=== PATIENT | female | born 1955 | race Caucasian/White ===

== ENCOUNTER → 2020-06-26 | Outpatient (REF) | payer BC | LOC: M LAB 22:02 | PROVIDERS: ATTEND Physician Assistant Medical | DX: Z11.52 Encounter for screening for COVID-19 (principal) ==

== ENCOUNTER → 2020-08-13 | Outpatient (REF) | payer BC | LOC: M LAB REF 21:40 | PROVIDERS: ATTEND Physician Assistant Medical | DX: Z20.828 Contact with and (suspected) exposure to other viral communicable diseases (principal) ==

== ENCOUNTER → 2021-07-23 | Outpatient (CLI) | payer BC | LOC: M RAD 08:14 | PROVIDERS: ATTEND Family Medicine | DX: R19.01 Right upper quadrant abdominal swelling, mass and lump (principal); I10 Essential (primary) hypertension; R53.83 Other fatigue; E03.9 Hypothyroidism, unspecified; K76.0 Fatty (change of) liver, not elsewhere classified ==

== ENCOUNTER → 2021-08-20 | Outpatient (CLI) | payer BC ==
[~2021-08-20] MED LIST: GASTROGRAFIN SOLUTION 30ML (Q9963) As Ordered ONE; ISOVUE-370 76% 100ML VIAL As Ordered ONE
== END ==
LOC: M RAD 12:21
PROVIDERS: ATTEND Family Medicine
DX: R19.01 Right upper quadrant abdominal swelling, mass and lump (principal); K76.0 Fatty (change of) liver, not elsewhere classified; K57.30 Diverticulosis of large intestine without perforation or abscess without bleeding
CPT/HCPCS: 74177; Q9963; Q9967

== ENCOUNTER 2022-02-06 07:48 | Emergency (ER) | payer BC ==
[~2022-02-06] VITALS: Ht 175.3 cm; Wt 109.1 kg
[2022-02-06] MEDS ORDERED: NITROGLYCERIN 0.4 MG SUBL TABLET SL PRN (08:20)
[2022-02-06] MEDS ORDERED: ASPIRIN 81 MG CHEW TABLET PO ONE (08:20)
[2022-02-06 08:33] LABS: BASO % 0.5 % (0.0-1.0); EOS # 0.3 10^3/uL (0.0-0.5); HEMATOCRIT 41.8 % (36.0-47.0); HEMOGLOBIN 14.3 g/dl (12.0-15.5); LYMPH % 26.3 % (24.0-44.0); MEAN CORPUSCULAR HEMOGLOBIN 32.1 pg (27.0-33.0); MEAN CORPUSCULAR HGB CONC 34.2 g/dl (32.0-36.5); MEAN CORPUSCULAR VOLUME 93.7 fl (80.0-96.0); MONO # 0.5 10^3/uL (0.0-0.8); MONO % 6.9 % (2.0-8.0); NEUTROPHILS # 4.7 10^3/uL (1.5-8.5); PLATELET COUNT, AUTOMATED 213 10^3/uL (150-450); RED BLOOD COUNT 4.46 10^6/uL (4.00-5.40); WHITE BLOOD COUNT 7.5 10^3/uL (4.0-10.0)
[2022-02-06 08:37] VITALS: BP 158/82
[2022-02-06 08:44] LABS: INR 0.95; PARTIAL THROMBOPLASTIN TIME 26.7 SECONDS (25.9-37.0)
[2022-02-06 08:47] LABS: D-DIMER QUANT 438.19 ng/ml (<500)
[2022-02-06] MEDS ORDERED: TOPR50TA PO (08:47)
[2022-02-06 09:03] LABS: CK-MB VALUE MASS < 1.0 NG/ML (<3.6); CPK CREATINE PHOSPHOKINASE 73 U/L (26-192); MB/CK RELATIVE INDEX 1.37 (< OR =4)
[2022-02-06 09:26] LABS: ALBUMIN 3.5 GM/DL (3.2-5.2); ALT/SGPT 24 U/L (12-78); BILIRUBIN,DIRECT 0.3 MG/DL (0.0-0.2); BILIRUBIN,TOTAL 0.6 MG/DL (0.2-1.0); BLOOD UREA NITROGEN 9 MG/DL (7-18); CALCIUM LEVEL 8.7 MG/DL (8.8-10.2); CARBON DIOXIDE LEVEL 24 MEQ/L (21-32); CHLORIDE LEVEL 107 MEQ/L (98-107); CREATININE FOR GFR 0.68 MG/DL (0.55-1.30); FREE T4 0.95 NG/DL (0.76-1.46); GLOMERULAR FILTRATION RATE > 60.0 (>45); GLUCOSE, FASTING 97 MG/DL (70-100); LIPASE 78 U/L (73-393); POTASSIUM SERUM 4.1 MEQ/L (3.5-5.1); SODIUM LEVEL 137 MEQ/L (136-145); TOTAL PROTEIN 6.6 GM/DL (6.4-8.2)
[2022-02-06 10:43] LABS: CK-MB VALUE MASS < 1.0 NG/ML (<3.6); CPK CREATINE PHOSPHOKINASE 65 U/L (26-192); MB/CK RELATIVE INDEX 1.54 (< OR =4)
[2022-02-06 12:46] VITALS: BP 157/69
== END 2022-02-06 13:11 | disposition home or self-care (01) ==
LOC: M ED 07:48
DX: R07.9 Chest pain, unspecified (principal); R00.1 Bradycardia, unspecified; I10 Essential (primary) hypertension; Z87.891 Personal history of nicotine dependence; Z82.49 Family history of ischemic heart disease and other diseases of the circulatory system

== ENCOUNTER → 2022-07-02 | Outpatient (CLI) | payer BC ==
[~2022-07-02] MED LIST changes: +APPL300T4 PO; -GASTROGRAFIN SOLUTION 30ML (Q9963) As Ordered ONE; +GNP250TA9 PO; -ISOVUE-370 76% 100ML VIAL As Ordered ONE; +TOPR50TA PO; +TUME1CAP PO
== END ==
LOC: M LABSMTC 09:09
PROVIDERS: ATTEND Anesthesiology
DX: Z01.812 Encounter for preprocedural laboratory examination (principal); Z20.822 Contact with and (suspected) exposure to COVID-19

== ENCOUNTER 2022-07-07 07:17 | Day surgery (SDC) | payer BC ==
[~2022-07-07] VITALS: Ht 172.7 cm; Wt 107.9 kg
[~2022-07-07 07:17] MED LIST changes: +NS 1,000 ML IV ONE
[2022-07-07] MEDS ORDERED: fentaNYL 100 MCG/2 ML INJECTION As Ordered ONE (07:19)
[2022-07-07] MEDS ORDERED: propofoL 500 MG/50 ML VIAL As Ordered ONE (07:19)
[2022-07-07] MEDS ORDERED: LIDOCAINE 2% 100MG/5ML SDV (FOR ANES.) As Ordered ONE (07:19)
[2022-07-07 09:00] VITALS: BP 118/66
== END 2022-07-07 09:08 | disposition home or self-care (01) ==
LOC: M OPP 07:17
PROVIDERS: ATTEND Internal Medicine Gastroenterology
DX: Z12.11 Encounter for screening for malignant neoplasm of colon (principal); K57.30 Diverticulosis of large intestine without perforation or abscess without bleeding; K64.0 First degree hemorrhoids; K29.60 Other gastritis without bleeding; K31.89 Other diseases of stomach and duodenum; K44.9 Diaphragmatic hernia without obstruction or gangrene; Z79.899 Other long term (current) drug therapy; I10 Essential (primary) hypertension; G47.33 Obstructive sleep apnea (adult) (pediatric); M17.9 Osteoarthritis of knee, unspecified; Z87.891 Personal history of nicotine dependence; Z90.49 Acquired absence of other specified parts of digestive tract

== ENCOUNTER → 2023-01-28 | Outpatient (CLI) | payer MEDICARE ==
[~2023-01-28] MED LIST changes: -NS 1,000 ML IV ONE
== END ==
LOC: M PLAIMG 13:00
PROVIDERS: ATTEND Physician Assistant
DX: S93.601A Unspecified sprain of right foot, initial encounter (principal); Y93.9 Activity, unspecified; Y92.9 Unspecified place or not applicable

== ENCOUNTER → 2024-12-23 | Outpatient (CLI) | payer MEDICARE ==
[~2024-12-23] MED LIST changes: +AMOX875T2 PO
[2024-12-23 09:30] LABS: ESTIMATED AVERAGE GLUCOSE 94.0 MG/DL (60-110)
[2024-12-23 09:32] LABS: PLATELET COUNT, AUTOMATED 257 10^3/uL (150-450)
[2024-12-23 10:18] LABS: IRON (FE) 122 UG/DL (50-170)
[2024-12-23 10:19] LABS: ALT/SGPT 22 U/L (7.0-40); AST/SGOT 22 U/L (<34); CALCIUM LEVEL 9.0 MG/DL (8.3-10.6); CARBON DIOXIDE LEVEL 28 MMOL/L (20-31); CHLORIDE LEVEL 107 MMOL/L (98-107); CHOLESTEROL LEVEL 200 MG/DL (<200); CHOLESTEROL RISK RATIO 4.49 (<5); CREATININE FOR GFR 0.62 MG/DL (0.55-1.30); GLOMERULAR FILTRATION RATE > 90.0 (>45); LDL CHOLESTEROL 121.5 MG/DL (<100); NON-HDL-C 155.5 MG/DL; PERCENT SATURATION 38.5 % (13.2-45.0); POTASSIUM SERUM 4.5 MMOL/L (3.5-5.1); SODIUM LEVEL 148 MMOL/L (136-145); TOTAL 25(OH) VITAMIN D 51.1 NG/ML (20.0-100.0); TRIGLYCERIDES LEVEL 170 MG/DL (<150)
== END ==
LOC: M LAB 08:34
PROVIDERS: ATTEND Family Medicine
DX: I10 Essential (primary) hypertension (principal); R53.83 Other fatigue; E03.9 Hypothyroidism, unspecified; Z79.899 Other long term (current) drug therapy